=== PATIENT | female | born 1980 | race Caucasian/White ===

== ENCOUNTER 2018-04-13 18:33 | Emergency (ER) | payer BC ==
[2018-04-13 18:38] VITALS: BP 119/75; PULSE 92; RESP 20; TEMP 98.1
--- NOTE | 2018-04-13 18:59 | ED ---
Wound/Laceration HPI - General Chief Complaint: Wound/Laceration Stated Complaint: LACERATION RT INDEX FINGER Time Seen by Provider: 04/13/18 18:38 Source: patient, RN notes reviewed, old records reviewed Mode of arrival: ambulatory Limitations: no limitations - History of Present Illness Initial Comments: This is a 37 year old female whom presents with laceration to R index finger. She cut it on a pin while trying to take it off of a costume. She is in the [employer] play. She states that a few weeks ago she broke the finger. She states that she has no other complaints. - Related Data Home Medications Medication Instructions Recorded Confirmed Dextroamphetamine/Amphetamine 10 mg PO DAILY 10/24/13 10/26/13 [Adderall] buPROPion HCL [Wellbutrin] 300 mg PO DAILY 10/24/13 10/26/13 Previous Rx's Medication Instructions Recorded Hydrocodone/Acetaminophen [[place] 1 - 2 each PO Q6HR PRN #20 tab 10/24/13 5-325] Cephalexin [Keflex] 250 mg PO Q6HR #20 cap 10/27/13 HYDROcodone/APAP 7.5-325MG [[place] 1 - 2 each PO Q4H PRN #60 tab 10/27/13 7.5] Warfarin [Coumadin] 2.5 mg PO Q2D #7 tab 10/27/13 hydrOXYzine PAMOATE [Vistaril] 25 mg PO Q4-6H PRN #60 capsule 10/27/13 Cephalexin [Keflex] 500 mg PO Q6HR #28 cap 04/13/18 Allergies Allergy/AdvReac Type Severity Reaction Status Date / Time codeine Allergy Unknown Verified 04/13/18 18:37 Review of Systems ROS Statement: Those systems with pertinent positive or pertinent negative responses have been documented in the HPI. ROS Other: All systems not noted in ROS Statement are negative. Past Medical History Past Medical History: No Reported History History of Any Multi-Drug Resistant Organisms: None Reported Past Surgical History: Tonsillectomy Additional Past Surgical History / Comment(s): RIGHT FOOT Past Anesthesia/Blood Transfusion Reactions: No Reported Reaction Past Psychological History: Anxiety, Depression Smoking Status: Never smoker Past Alcohol Use History: Rare Past Drug Use History: None Reported General Exam - General Exam Comments Initial Comments: This is a 37 year old female, no distress. Limitations: no limitations General appearance: alert, in no apparent distress Head exam: Present: atraumatic, normocephalic, normal inspection Eye exam: Present: normal appearance, PERRL, EOMI. Absent: scleral icterus, conjunctival injection, periorbital swelling ENT exam: Present: normal exam, mucous membranes moist Neck exam: Present: normal inspection. Absent: tenderness, meningismus, lymphadenopathy Respiratory exam: Present: normal lung sounds bilaterally. Absent: respiratory distress, wheezes, rales, rhonchi, stridor Cardiovascular Exam: Present: regular rate, normal rhythm, normal heart sounds. Absent: systolic murmur, diastolic murmur, rubs, gallop, clicks GI/Abdominal exam: Present: soft, normal bowel sounds. Absent: distended, tenderness, guarding, rebound, rigid Right Elbow exam: Present: normal inspection, full ROM Forearm Wrist exam: Present: normal inspection, full ROM Hand Wrist exam: Present: laceration (2cm laceration over DIP of right inde x finger. ). Absent: normal inspection Neuro motor exam: Present: wrist extension intact, thumb opposition intact, thumb IP flexion intact, thumb adduction intact, fingers 2-5 abduction intact Vascular: Present: normal capillary refill Back exam: Present: normal inspection Neurological exam: Present: alert, oriented X3, CN II-XII intact Psychiatric exam: Present: normal affect, normal mood Skin exam: Present: warm, dry, intact, normal color. Absent: rash Course Vital Signs 04/13/18 18:35 Temperature 98.1 F Pulse Rate 92 Respiratory 20 Rate Blood Pressure 119/75 O2 Sat by Pulse 99 Oximetry Procedures - Laceration Laceration #1 Site: hand Size (cm): 2 Description: linear Depth: simple, single layer Anesthetic Used: lidocaine 1% Anesthesia Technique: local infiltration Amount (mls): 2 Pre-repair: wound explored, irrigated extensively Type of Sutures: nylon Size of Sutures: 5-0 Number of Sutures: 2 Technique: simple, interrupted Patient Tolerated Procedure: well, no complications Medical Decision Making - Medical Decision Making 37 year old female, presents to ED for right index finger laceration. She broke the finger a few weeks ago. Patient has 2cm laceration and was closed with 2 sutures. Discussed with history of fracture will place patient on keflex. Return parametesr discussed. Disposition Clinical Impression: Laceration of finger, right Disposition: HOME SELF-CARE Condition: Good Instructions: Laceration (ED) Additional Instructions: Please return to the emergency room in 8-10 days to have sutures removed. Please leave wound covered for the first 24-48 hours and then leave open to air after that time. Please use clean soap and water to clean the suture area to prevent scabbing over the top of your sutures. Please watch for any signs of infection which may include but not limited to increased pain, swelling, redness , fever or chills. Please return to the emergency room if any signs of infection do occur. Please return to the emergency room for any other concerns or complications. Prescriptions: Cephalexin [Keflex] 500 mg PO Q6HR #28 cap Is patient prescribed a controlled substance at d/c from ED?: No Referrals: Rudy Pedraza DO [Primary Care Provider] - 1-2 days Time of Disposition: 18:57
[2018-04-13] MEDS ORDERED: CEPHALEXIN 500MG STARTER PACK 4 CAP BTL PO STA (19:14)
[2018-04-13] MEDS ORDERED: traMADol 50 MG STARTER PACK 3 TAB BTL PO STA (19:14)
== END 2018-04-13 19:28 | disposition home or self-care (01) ==
LOC: EC 18:33
DX: S61.210A Laceration without foreign body of right index finger without damage to nail, initial encounter (principal); F32.9 Major depressive disorder, single episode, unspecified; F41.9 Anxiety disorder, unspecified; Z88.5 Allergy status to narcotic agent; Z79.899 Other long term (current) drug therapy; W26.8XXA Contact with other sharp object(s), not elsewhere classified, initial encounter; Y93.89 Activity, other specified; Y92.254 Theater (live) as the place of occurrence of the external cause
CPT/HCPCS: 12001; 99283

== ENCOUNTER 2018-06-17 15:47 | Emergency (ER) | payer BC ==
[2018-06-17 16:07] VITALS: RESP 18; TEMP 98.2
--- NOTE | 2018-06-17 17:29 | ED ---
Psych HPI - General Chief Complaint: Psychiatric Symptoms Stated Complaint: mental health Time Seen by Provider: 06/17/18 16:58 Source: patient, RN notes reviewed, old records reviewed Mode of arrival: ambulatory - History of Present Illness Initial Comments: 29-year-old female presents emergency room today for evaluation for severe anxiety depression. She was started on new medication, [place]al asked by her PCP. Patient reports that she is been on this for 3 weeks. She reports that manages her depression and her lows but she continues to have severe anxiety and feels as if her heart will be racing. Patient states that she takes Xanax for on these acute panic attacks occur. Patient states it seems to not be managing and she's taking more and more. Patient states she's been hospitalized before for depression shortly after her last child was born as well as after her brother at that time. Patient states that she has had no other complaints no physical complaints. She states she just cannot handle life anymore. She has had some fleeting suicidal thoughts but no plans or intention to act on them. - Related Data Home Medications Medication Instructions Recorded Confirmed Dextroamphetamine/Amphetamine 10 mg PO DAILY 10/24/13 06/17/18 [Adderall] ALPRAZolam [Xanax] 0.25 mg PO BID PRN 06/17/18 06/17/18 Vortioxetine Hydrobromide 5 mg PO DAILY 06/17/18 06/17/18 [Trintellix] Zolpidem [Ambien] 10 mg PO HS PRN 06/17/18 06/17/18 Previous Rx's Medication Instructions Recorded LORazepam [Ativan] 1 mg PO HS 3 Days #3 tab 06/17/18 Allergies Allergy/AdvReac Type Severity Reaction Status Date / Time codeine Allergy Nausea & Verified 06/17/18 17:05 Vomiting Review of Systems ROS Statement: Those systems with pertinent positive or pertinent negative responses have been documented in the HPI. ROS Other: All systems not noted in ROS Statement are negative. Past Medical History Past Medical History: No Reported History History of Any Multi-Drug Resistant Organisms: None Reported Past Surgical History: Tonsillectomy Additional Past Surgical History / Comment(s): RIGHT FOOT Past Anesthesia/Blood Transfusion Reactions: No Reported Reaction Past Psychological History: Anxiety, Depression Smoking Status: Current some day smoker Past Alcohol Use History: Rare Past Drug Use History: None Reported General Exam - General Exam Comments Initial Comments: 37-year-old female. Patient is anxious. Limitations: no limitations General appearance: alert, in no apparent distress, anxious Head exam: Present: atraumatic, normocephalic, normal inspection Eye exam: Present: normal appearance, PERRL, EOMI. Absent: scleral icterus, conjunctival injection, periorbital swelling ENT exam: Present: normal exam, mucous membranes moist Neck exam: Present: normal inspection. Absent: tenderness, meningismus, lymphadenopathy Respiratory exam: Present: normal lung sounds bilaterally. Absent: respiratory distress, wheezes, rales, rhonchi, stridor Cardiovascular Exam: Present: regular rate, normal rhythm, normal heart sounds. Absent: systolic murmur, diastolic murmur, rubs, gallop, clicks GI/Abdominal exam: Present: soft, normal bowel sounds. Absent: distended, tenderness, guarding, rebound, rigid Extremities exam: Present: normal inspection, full ROM, normal capillary refill. Absent: tenderness, pedal edema, joint swelling, calf tenderness Back exam: Present: normal inspection Neurological exam: Present: alert, oriented X3, CN II-XII intact Psychiatric exam: Present: normal mood, anxious. Absent: normal affect Skin exam: Present: warm, dry, intact, normal color. Absent: rash Course Vital Signs 06/17/18 06/17/18 16:05 19:18 Temperature 98.2 F Pulse Rate 118 H 98 Respiratory 18 18 Rate Blood Pressure 146/84 131/75 O2 Sat by Pulse 99 98 Oximetry Medical Decision Making - Medical Decision Making Patient is a 37 year old female whom presents with anxiety. Patient was evaluated by EPS. She is stable for discharge and outpatient therapy. I will discharge with PCP follow up and short course of anxiety medication, ativan. Discussed strict return paramters. - Lab Data Lab Results 06/17/18 Range/Units 17:30 Urine Opiates Screen Not Detected (NotDetected) Ur Oxycodone Screen Not Detected (NotDetected) Urine Methadone Screen Not Detected (NotDetected) Ur Propoxyphene Screen Not Detected (NotDetected) Ur Barbiturates Screen Not Detected (NotDetected) U Tricyclic Antidepress Not Detected (NotDetected) Ur Phencyclidine Scrn Not Detected (NotDetected) Ur Amphetamines Screen Detected H (NotDetected) U Methamphetamines Scrn Not Detected (NotDetected) U Benzodiazepines Scrn Not Detected (NotDetected) Urine Cocaine Screen Not Detected (NotDetected) U Marijuana (THC) Screen Not Detected (NotDetected) Disposition Clinical Impression: Anxiety Disposition: HOME SELF-CARE Condition: Good Instructions (If sedation given, give patient instructions): Generalized Anxiety Disorder (ED) Additional Instructions: Patient has a follow-up with her primary care provider and [facility]. Return to the emergency department if any alarming signs or symptoms occur. Prescriptions: LORazepam [Ativan] 1 mg PO HS 3 Days #3 tab Is patient prescribed a controlled substance at d/c from ED?: Yes If prescribed controlled substance>3 days was MAPS reviewed?: Prescribed <3 Days Referrals: Rudy Pedraza DO [Primary Care Provider] - 1-2 days Time of Disposition: 19:01
[2018-06-17 17:51] LABS: Amphetamine Screen,Urine Detected (NotDetected); Barbiturate Screen,Urine Not Detected (NotDetected); Benzodiazepines Screen,Urine Not Detected (NotDetected); Cocaine Screen,Urine Not Detected (NotDetected); Methadone Screen, Urine Not Detected (NotDetected); Opiate Screen,Urine Not Detected (NotDetected); Oxycodone Screen, Urine Not Detected (NotDetected); Phencyclidine Screen,Urine Not Detected (NotDetected); Tricyclic Antidepressant,Urine Not Detected (NotDetected); Urn Cannabinoid Scrn Not Detected (NotDetected)
[2018-06-17 19:19] VITALS: BP 131/75; PULSE 98
== END 2018-06-17 19:18 | disposition home or self-care (01) ==
LOC: EC 15:47
DX: F41.0 Panic disorder [episodic paroxysmal anxiety] (principal); F32.9 Major depressive disorder, single episode, unspecified; R45.851 Suicidal ideations; F17.200 Nicotine dependence, unspecified, uncomplicated; Z79.899 Other long term (current) drug therapy; Z88.5 Allergy status to narcotic agent
CPT/HCPCS: 80306; 82075; 99284

== ENCOUNTER 2019-03-09 21:01 | Emergency (ER) | payer BC ==
--- NOTE | 2019-03-09 22:04 | ED ---
Psych HPI - General Chief Complaint: Psychiatric Symptoms Stated Complaint: Anxiety Time Seen by Provider: 03/09/19 21:08 Source: patient Mode of arrival: ambulatory - History of Present Illness Initial Comments: This patient is a 38-year-old woman who presents to have psychiatric evaluation tonight. The patient states that she has been having issues with significant anxiety. She has been following with Dr. Pedraza who has been attempting to manage things as outpatient. She also has been seen by [facility]. The patient states that there was some additional stressors today and she was feeling worse. She tried to calm herself at home by having a couple of drinks and also taking her outpatient medication. The patient states these things did not help and she also had some suicidal thoughts so she felt she should be evaluated here. MD Complaint: suicidal ideation, other (Anxiety) -: week(s) Associated Psychiatric Symptoms: suicidal ideation, racing thoughts History of same: Yes Quality: changing over time Improves With: none Worsens With: none Context: significant life stressor Associated Symptoms: denies other symptoms - Related Data Home Medications Medication Instructions Recorded Confirmed Dextroamphetamine/Amphetamine 10 mg PO DAILY 10/24/13 03/09/19 [Adderall] ALPRAZolam [Xanax] 0.5 mg PO DAILY PRN 03/09/19 03/09/19 buPROPion HCL [Wellbutrin SR] 75 mg PO DAILY 03/09/19 03/09/19 busPIRone HCL [Buspar] 3.75 mg PO DAILY 03/09/19 03/09/19 Allergies Allergy/AdvReac Type Severity Reaction Status Date / Time codeine Allergy Nausea & Verified 03/09/19 21:23 Vomiting Review of Systems ROS Statement: Those systems with pertinent positive or pertinent negative responses have been documented in the HPI. ROS Other: All systems not noted in ROS Statement are negative. Constitutional: Denies: fever, chills Respiratory: Denies: cough, dyspnea Cardiovascular: Denies: chest pain, palpitations, edema Gastrointestinal: Denies: abdominal pain, vomiting, diarrhea Genitourinary: Denies: dysuria, hematuria Musculoskeletal: Denies: back pain Neurological: Denies: headache Psychiatric: Reports: anxiety, depression, suicidal thoughts. Denies: auditory hallucinations, visual hallucinations, homicidal thoughts Past Medical History Past Medical History: No Reported History History of Any Multi-Drug Resistant Organisms: None Reported Past Surgical History: Tonsillectomy Additional Past Surgical History / Comment(s): RIGHT FOOT Past Anesthesia/Blood Transfusion Reactions: No Reported Reaction Past Psychological History: Anxiety, Depression Smoking Status: Current some day smoker Past Alcohol Use History: Rare Past Drug Use History: None Reported General Exam Limitations: no limitations General appearance: alert, in no apparent distress, anxious Head exam: Present: atraumatic, normocephalic Eye exam: Present: normal appearance. Absent: scleral icterus, conjunctival injection ENT exam: Present: normal oropharynx Respiratory exam: Present: normal lung sounds bilaterally. Absent: respiratory distress, wheezes, rales, rhonchi, stridor Cardiovascular Exam: Present: regular rate, normal rhythm, normal heart sounds. Absent: systolic murmur, diastolic murmur, rubs, gallop GI/Abdominal exam: Present: soft. Absent: tenderness Extremities exam: Present: normal inspection, normal capillary refill. Absent: pedal edema, calf tenderness Back exam: Present: normal inspection. Absent: CVA tenderness (R), CVA tenderness (L) Neurological exam: Present: alert Psychiatric exam: Present: depressed, anxious, suicidal ideation. Absent: flat affect, manic, homicidal ideation Skin exam: Present: warm, dry, intact, normal color. Absent: rash Course Vital Signs 03/09/19 03/09/19 21:03 22:52 Temperature 97.9 F Pulse Rate 110 H Respiratory 18 16 Rate Blood Pressure 128/83 O2 Sat by Pulse 98 Oximetry Medical Decision Making - Lab Data Lab Results 03/09/19 Range/Units 22:50 Urine Opiates Screen Not Detected (NotDetected) Ur Oxycodone Screen Not Detected (NotDetected) Urine Methadone Screen Not Detected (NotDetected) Ur Propoxyphene Screen Not Detected (NotDetected) Ur Barbiturates Screen Not Detected (NotDetected) U Tricyclic Antidepress Not Detected (NotDetected) Ur Phencyclidine Scrn Not Detected (NotDetected) Ur Amphetamines Screen Detected H (NotDetected) U Methamphetamines Scrn Not Detected (NotDetected) U Benzodiazepines Scrn Detected H (NotDetected) Urine Cocaine Screen Not Detected (NotDetected) U Marijuana (THC) Screen Not Detected (NotDetected) Disposition Clinical Impression: Mood disorder Disposition: HOME SELF-CARE Condition: Good Instructions (If sedation given, give patient instructions): Mood Disorders (ED) Is patient prescribed a controlled substance at d/c from ED?: No Referrals: Rudy Pedraza DO [Primary Care Provider] - 1-2 days
[2019-03-09 23:18] LABS: Amphetamine Screen,Urine Detected (NotDetected); Cocaine Screen,Urine Not Detected (NotDetected); Opiate Screen,Urine Not Detected (NotDetected); Phencyclidine Screen,Urine Not Detected (NotDetected); Urn Cannabinoid Scrn Not Detected (NotDetected)
[2019-03-09 23:19] LABS: Barbiturate Screen,Urine Not Detected (NotDetected); Benzodiazepines Screen,Urine Detected (NotDetected); Methadone Screen, Urine Not Detected (NotDetected); Oxycodone Screen, Urine Not Detected (NotDetected); Tricyclic Antidepressant,Urine Not Detected (NotDetected)
[2019-03-10 03:38] VITALS: BP 120/72; PULSE 88; RESP 18; TEMP 98
== END 2019-03-10 03:40 | disposition home or self-care (01) ==
LOC: EC 21:01
DX: F32.9 Major depressive disorder, single episode, unspecified (principal); F41.9 Anxiety disorder, unspecified; R45.851 Suicidal ideations; F17.200 Nicotine dependence, unspecified, uncomplicated; Z88.5 Allergy status to narcotic agent; Z79.899 Other long term (current) drug therapy; Z63.79 Other stressful life events affecting family and household
CPT/HCPCS: 80306; 82075; 99285

== ENCOUNTER → 2023-01-01 | Outpatient (CLI) | payer BC ==
--- NOTE | 2023-01-02 13:35 | MM ---
Reason for Exam: Screening (asymptomatic). Last mammogram was performed 8 year(s) and 2 month(s) ago. Patient History: Menarche at age 12. First Full-Term at age 24. Patient used Hormonal Contraceptives for 15 years. 2013, Bilateral Implants. Risk Values: Kalyani 5 year model risk: 0.8%. NCI Lifetime model risk: 10.8%. Prior Study Comparison: 10/21/2014 Bilateral Screening Mammogram, [facility]. Tissue Density: The breast tissue is heterogeneously dense. This may lower the sensitivity of mammography. Findings: Analyzed By CAD. There is no suspicious group of microcalcifications or new suspicious mass in either breast. Bilateral implants are intact. Overall Assessment: Benign, BI-RAD 2 Management: Screening Mammogram of both breasts in 1 year. . Patient should continue monthly self-breast exams. A clinical breast exam by your physician is recommended on an annual basis. This exam should not preclude additional follow-up of suspicious palpable abnormalities. Note on Kalyani scores and lifetime risk: 1. A Kalyani score greater than 3% is considered moderate risk. If this is the case, consider specialist referral to assess eligibility for a risk reducing agent. 2. If overall lifetime risk for the development of breast cancer is 20% or higher, the patient may qualify for future screening with alternating mammogram and breast MRI. Electronically signed and approved by: Manjinder Savage M.D. Radiologis
== END | disposition home or self-care (01) ==
LOC: RADMAMWWP 10:53
PROVIDERS: ATTEND Obstetrics & Gynecology
DX: Z12.31 Encounter for screening mammogram for malignant neoplasm of breast (principal)
CPT/HCPCS: 77063; 77067

== ENCOUNTER 2023-08-23 11:28 | Day surgery (SDC) | payer BC ==
[2023-08-23] MEDS ORDERED: SCOPOLAMINE 1 MG/72 HR PATCH TRANSDERM ONE (11:47)
[2023-08-23] MEDS ORDERED: MIDAZOLAM 2 MG/2 ML VIAL IV PRN (11:47)
[2023-08-23] MEDS ORDERED: HYDROmorphone 0.5 MG/0.5 ML SYRINGE IVP PRN (11:47)
[2023-08-23] MEDS: LACTATED RINGERS 1,000 ML IV SCH (11:51)
[2023-08-23 12:16] VITALS: RESP 16
[2023-08-23] MEDS: ONDANSETRON 4 MG/2 ML VIAL IVP ONE (12:25)
[2023-08-23] MEDS: DEXAMETHASONE SOD PHOSPHATE 4 MG/ML 1 ML VIAL IV ONE (12:25)
[2023-08-23] MEDS: MIDAZOLAM 2 MG/2 ML VIAL IVP ONE (12:31)
[2023-08-23] MEDS: fentaNYL (PF) 50 MCG/ML 2 ML AMP IVP ONE (12:32)
--- NOTE | 2023-08-23 13:17 | P.ANPRN ---
Procedure Note - Anesthesia - Nerve Block Performed Right Popliteal Single Time Out Performed: Yes (1230) Date of Procedure: 08/23/23 Procedure Start Time: 12:31 Procedure Stop Time: 12:33 Location of Patient: PreOp Indication: Acute Post-Operative Pain, Requested by Surgeon Sedation Type: Sedate with meaningful contact maintained Preparation: Sterile Prep Position: Left Lateral Catheter: None Needle Types: Pajunk Needle Gauge: 21 Ultrasound used to visualize needle placement: Yes Ultrasound used to observe medication spread: Yes Injectate: 0.5% Ropivacaine (see comment for volume) (15cc+10cc nacl pf) Blood Aspirated: No Pain Paresthesia on Injection Noted: No Resistance on Injection: Normal Image Stored and Saved: Yes Events: Uneventful and Well Tolerated
--- NOTE | 2023-08-23 13:18 | P.ANPRN ---
Procedure Note - Anesthesia - Nerve Block Performed Right Adductor Canal Single Time Out Performed: Yes (1230) Date of Procedure: 08/23/23 Procedure Start Time: 12:34 Procedure Stop Time: 12:36 Location of Patient: PreOp Indication: Acute Post-Operative Pain, Requested by Surgeon Specifically requested for management of pain by DrLedy: Liang Coffey Sedation Type: Sedate with meaningful contact maintained Preparation: Sterile Prep Position: Supine Catheter: None Needle Types: Pajunk Needle Gauge: 21 Ultrasound used to visualize needle placement: Yes Ultrasound used to observe medication spread: Yes Injectate: 0.5% Ropivacaine (see comment for volume) (15cc +10cc nacl pf) Blood Aspirated: No Pain Paresthesia on Injection Noted: No Resistance on Injection: Normal Image Stored and Saved: Yes Events: Uneventful and Well Tolerated
[2023-08-23] MEDS: SCOPOLAMINE 1 MG/72 HR PATCH TRANSDERM ONE (13:27)
[2023-08-23] MEDS ORDERED: SODIUM CHLORIDE 0.9% (PF) 10 ML VIAL ONE (13:29)
[2023-08-23] MEDS ORDERED: ROPIVACAINE 5 MG/ML 30 ML VIAL ONE (13:29)
[2023-08-23] MEDS ORDERED: MIDAZOLAM 2 MG/2 ML VIAL ONE (13:29)
[2023-08-23] MEDS ORDERED: PROPOFOL 10 MG/ML 20 ML VIAL IV ONE (13:29)
[2023-08-23] MEDS ORDERED: LIDOCAINE 1% INJ 10MG/ML (20 ML MDV) ONE (13:29)
[2023-08-23] MEDS ORDERED: SUCCINYLCHOLINE CHLORIDE 200 MG/10 ML VIAL IV ONE (13:29)
[2023-08-23] MEDS ORDERED: KETOROLAC 15 MG/ML 1 ML VIAL ONE (13:29)
[2023-08-23] MEDS ORDERED: fentaNYL (PF) 50 MCG/ML 2 ML AMP ONE (13:29)
--- NOTE | 2023-08-23 14:31 | P.OP ---
Date of Procedure: 08/23/23 Preoperative Diagnosis: right Achilles tendon rupture Postoperative Diagnosis: same Procedure(s) Performed: repair of right Achilles tendon rupture Implants: Arthrex PARS Achilles rupture repair system Anesthesia: LOIDAA Surgeon: Liang Coffey Estimated Blood Loss (ml): 20 Pathology: none sent Condition: stable Disposition: PACU Description of Procedure: Prior to the patient being brought to the operative room, anesthesia administered a nerve block on the affected lower extremity. The patient was then brought into the operating room where timeout was taken to confirm correct patient identifiers, correct laterally of surgery, and correct procedure. Once all staff in the room were in agreement the timeout, the patient was induced and placed under general anesthesia. The patient was then placed on the operating table in the prone position, with appropriate padding in the thoracic area as well as the face. Once anesthesia was satisfied with position of the patient, the leg was then prepped and draped in usual manner. Attention was directed to the posterior aspect the ankle, where there was a palpable defect in the watershed area of the Achilles tendon. A transverse incision was made near the proximal stump of the Achilles rupture. It was deepened under the subcutaneous tissue careful to identify, avoid, and retract any neurovascular structures and cauterize any bleeding vessels. Blunt dissection was continued down to level of the peritenon. Blunt instrumentation was inserted on the medial lateral side of the Achilles tendon to separate the peritenon from the proximal stump. A large sponge forceps was used to grasp proximal stump of the Achilles tendon and pull it distally. The Arthrex PARS jig was inserted on either side of the Achilles tendon with the inner arms inside the peritenon. With tension placed on the proximal stump of the Achilles tendon, a needle was passed through the #1 position of the PARS jig to lock the tendon in place. The #2 suture was passed next. The looped locking stitches were passed through the holes 3 and 4. The last suture was through 5. The sutures are then evened out and then the PARS jig was retracted distally to pull the suture within the peritenon and along the course of the proximal stump of the Achilles tendon. The sutures were delivered into the surgical field. The looped sutures were used to pass the #2 suture to create a locking stitch both medially and laterally. The looped sutures then placed on the back table and set aside. Tension was placed on both suture stacks and pulled distally to remove any creep from the suture in the tendon. Once the creep was removed, tension was placed on the tendon and it was indicated that the suture had a good grasp of the tendon given that the gastroc muscle belly was moving while pulling on the suture. 2 small stab incisions were made on the medial lateral aspects of the Achilles tendon insertion over the calcaneus. Those incisions are taken directly down to bone. The drill bit for the 4.75 mm swivel lock anchor was used to create drill holes in the calcaneus. The drill holes were then tapped. The suture passer was placed through the calcaneal incisions and then passed through the distal stump of the Achilles tendon exiting out at the rupture site. The suture passer was then used to grasp the suture stack and pull it through the distal stump of the tendon and out the corresponding incision over the ca lcaneus. This is then repeated with the opposite side. With tension placed on the suture to bring the tendon ends together, the suture was passed through the swivel lock anchor which was then inserted into the drill hole in the calcaneus and the swivel lock was impacted and advanced to lock the suture in place. This was then repeated for the opposite side. Then the knee was flexed and Cortez 's test was performed. Cortez's test was negative. The suture was cut and the wound is thoroughly irrigated with antibiotic saline. Subcutaneous closure of all incisions was done with 4-0 Monocryl. The L-shaped incision over the rupture was closed with 4-0 Stratafix in a running subcuticular manner. Dermal glue was applied over all the incisions as well as the munson made by the passing needles. Once dried Steri-Strips are placed over the incisions. An Arthrex jumpstart dressing was placed over the incisions and then covered with a dry sterile dressing. The tourniquet was released and capillary refill return to the digits on the affected foot. Then the patient was placed in a below-knee fracture boot with the ankle slightly plantar flexed. The patient was rolled onto the transfer table in the supine position and then anesthesia was reversed. The patient was taken recovery with vital signs stable.
[2023-08-23] MEDS: HYDROmorphone 0.5 MG/0.5 ML SYRINGE IVP ONE (14:48)
[2023-08-23 15:02] VITALS: TEMP 97
[2023-08-23] MEDS ORDERED: HYDROcodone/APAP 5-325MG 1 EACH TAB ONE (15:33)
[2023-08-23] MEDS: HYDROcodone/APAP 5-325MG 1 EACH TAB PO ONE (15:35)
[2023-08-23 15:42] VITALS: BP 122/81; PULSE 82
== END 2023-08-23 15:58 | disposition home or self-care (01) ==
LOC: OR 11:28
PROVIDERS: ATTEND Podiatrist
DX: S86.011A Strain of right Achilles tendon, initial encounter (principal); G89.18 Other acute postprocedural pain; Z87.891 Personal history of nicotine dependence; Z88.5 Allergy status to narcotic agent; Z79.899 Other long term (current) drug therapy; X58.XXXA Exposure to other specified factors, initial encounter
CPT/HCPCS: 64447; 81025; 64445; 27650; C1713; J2250; J0330; J1100; J0690; J2405; J2001; J3010; J2795; J1885; J2704; J1170